=== PATIENT | female | born 1985 | race Caucasian/White ===

== ENCOUNTER 2017-02-14 15:49 | Emergency (ER) | payer MEDICAID, OTHER ==
[2017-02-14] MEDS ORDERED: Ketorolac Tromethamine 30 MG/ML VIAL ONE (16:06)
[2017-02-14 16:32] LABS: Bilirubin Negative (Negative); Blood, Urine Negative (Negative); Clarity Clear (Clear); Glucose, Urine (Dipstick) Negative (Negative); Leukocyte Negative (Negative); Nitrite Negative (Negative); Protein, Urine (Dipstick) Negative (Neg-Trace); Urobilinogen 0.2 mg/dL (0.2-1.0)
[2017-02-14 16:37] LABS: Anion Gap 14 mmol/L (10-20); BUN (Urea Nitrogen) 12 mg/dL (7.0-18.7); Calc. Creatinine Clearance 0 mL/min (70-130); Carbon Dioxide 20 mmol/L (22-29); Chloride 110 mmol/L (98-107); Estimated GFR-MDRD Greater than 90; Glucose 89 mg/dL (70-105); Potassium 4.1 mmol/L (3.5-5.1); Sodium 140 mmol/L (136-145)
[2017-02-14 16:40] LABS: Elliptocytes SLIGHT = 2-5 cells (100X) (0-1/hpf); Eosinophils 7 % (0-10); Hemoglobin 10.8 g/dL (12.0-16.0); Hypochromia MODERATE=16-30 cells (100X) (0-5/hpf); Lymphocytes 33 % (21-51); MDiff Complete? YES; Mean Corpuscular HGB CONC 30.7 g/dL (32.0-36.0); Mean Corpuscular Hemoglobin 23.1 pg (27.0-31.0); Mean Corpuscular Volume 75.2 fl (81.0-99.0); Mean Platelet Volume 10.8 fL (7.4-10.4); Microcytosis SLIGHT = 6-15 cells (100X) (0-5/hpf); Monocytes 7 % (0-10); Neutrophil 53 % (42-75); Platelet Count 315 thou/uL (130-400); RBC Distribution Width 16.3 % (11.5-14.5); Red Blood Cell (RBC) Count 4.66 mill/uL (4.20-5.40); White Blood Cell (WBC) Count 9.3 thou/uL (4.8-10.8)
[2017-02-14 16:41] LABS: Pregnancy Test - Urine (BHCG) Negative (Negative); Pregu Control Background? CLEAR/WHITE (CLR/WHITE); Pregu Control Bar Appear? YES (CONTROL BAR)
[2017-02-14] MEDS ORDERED: Fentanyl 100 MCG/2 ML VIAL ONE (17:15)
--- NOTE | 2017-02-14 19:16 | CT ---
CT ABDOMEN AND PELVIS WITHOUT CONTRAST 02/14/[address] of the abdomen and pelvis was done without oral or IV contrast in a renal stone protocol. Axial slices were acquired, then coronal reconstructions were done. The lung bases are clear. The liver, spleen, pancreas, adrenal glands, gallbladder and abdominal aor ta all were unremarkable in appearance. Bilateral nonobstructing renal calculi are present. The uret ers are normal in caliber. I see no ureteral calculi. While there is a calcification distally, near the left UVJ, with this ureter being so normal in size (and actually small) it is more likely to be a phlebolith just outside of the ureter. There are other phleboliths elsewhere here. No free air or free fluid was seen in the abdomen. The bowel shows no sign of obstruction or inflamm atory change around it. CT of the pelvis shows no adnexal masses, free fluid or inflammatory changes. IMPRESSION: Bilateral nonobstructing renal calculi. No other cause for left upper quadrant pain was found. POS: HOME
== END 2017-02-14 17:55 | disposition home or self-care (01) ==
LOC: BURERS 15:49
DX: N20.0 Calculus of kidney (principal); R10.12 Left upper quadrant pain; F17.290 Nicotine dependence, other tobacco product, uncomplicated
CPT/HCPCS: 74176; 80048; 81003; 81025; 85025; 96374; 96375; J1885; J3010

== ENCOUNTER 2017-04-03 18:07 | Emergency (ER) | payer OTHER ==
[2017-04-03] MEDS ORDERED: HYDROcodone/Acetaminophen 10/325 mg Tablet ONE (18:30)
[2017-04-03] MEDS ORDERED: AMOXicillin 250 MG CAP ONE (18:31)
[2017-04-03] MEDS ORDERED: Ibuprofen 800 MG TAB ONE (18:31)
== END 2017-04-03 18:41 | disposition home or self-care (01) ==
LOC: BURERS 18:07
DX: K04.7 Periapical abscess without sinus (principal); F17.290 Nicotine dependence, other tobacco product, uncomplicated
CPT/HCPCS: 99282

== ENCOUNTER 2017-05-29 18:46 | Emergency (ER) | payer OTHER ==
[2017-05-29 19:16] LABS: Pregnancy Test - Urine (BHCG) Negative (Negative)
[2017-05-29 19:17] LABS: Bilirubin Negative (Negative); Blood, Urine Negative (Negative); Clarity Clear (Clear); Glucose, Urine (Dipstick) Negative (Negative); Leukocyte Negative (Negative); Nitrite Negative (Negative); Protein, Urine (Dipstick) Negative (Neg-Trace); Specific Gravity, Urine 1.025 (1.005-1.030); Urobilinogen 0.2 mg/dL (0.2-1.0); pH, Urine 5.5 (5.0-9.0)
[2017-05-29 19:17] LABS: Pregu Control Background? CLEAR/WHITE (CLR/WHITE); Pregu Control Bar Appear? YES (CONTROL BAR); Specific Gravity 1.025 (1.002-1.036)
[2017-05-29] MEDS ORDERED: Ibuprofen 800 MG TAB ONE (20:06)
--- NOTE | 2017-05-29 22:43 | CT ---
CT ABDOMEN AND PELVIS WITHOUT CONTRAST 05/29/[address] of the abdomen and pelvis was performed for evaluation of pain. There is particularly pain in the left inguinal region so I am told. The lung bases are clear. The liver, spleen, pancreas, gallbladder, adrenal glands and abdominal aor ta showed no acute findings. The right kidney is malrotated. Bilateral nonobstructing renal calculi are seen. No ureteral calculi were appreciated. There is some calcifications in the pelvis near the urinary bladder, particularly on the left, where near the ureters. Never, the less, given no uretera l dilation at all, I believe they are just merely adjacent to it and not within it. The bowel is nondistended. No free air or free fluid was seen. There are no inflammatory changes shagufta und bowel. I do not see any evidence of a significant inguinal hernia. there is a tiny fat filled um bilical hernia of no consequence. The bony structures were unremarkable. IMPRESSION: Nonobstructing bilateral renal calculi. POS: HOME
== END 2017-05-29 20:08 | disposition home or self-care (01) ==
LOC: BURERS 18:46
DX: S39.011A Strain of muscle, fascia and tendon of abdomen, initial encounter (principal); Z87.891 Personal history of nicotine dependence; X50.0XXA Overexertion from strenuous movement or load, initial encounter
CPT/HCPCS: 74176; 81003; 81025

== ENCOUNTER 2017-11-05 14:00 | Emergency (ER) | payer OTHER ==
[2017-11-05] MEDS ORDERED: Triamcinolone 40 MG/ML VIAL ONE (14:47)
== END 2017-11-05 15:00 | disposition home or self-care (01) ==
LOC: BURERS 14:00
DX: L25.9 Unspecified contact dermatitis, unspecified cause (principal); Z87.891 Personal history of nicotine dependence; Z79.899 Other long term (current) drug therapy
CPT/HCPCS: 96372; J3301